=== PATIENT | female | born 2000 | race Caucasian/White ===

== ENCOUNTER 2021-05-02 20:36 | Emergency (ER) | payer OTHER ==
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
[2021-05-02 22:27] LABS: Urine Blood Trace-intact (Negative); Urine Glucose Negative (Negative); Urine Protein Negative (Negative); Urine Specific Gravity 1.015 (1.005-1.030)
[2021-05-02 22:31] LABS: Urine Specific Gravity/Preg 1.015 (1.005-1.030)
[2021-05-02 22:35] LABS: Absolute Lymphocytes (CBC) 2.6 K/uL (0.7-4.9); Basophils % 0.5 % (0-1.3); Hematocrit 42.8 % (36.0-45.0); Lymphocytes % 20.4 % (15.3-44.8); MPV 7.8 fL (7.6-11.3); RBC Red Blood Cell Count 5.33 M/uL (3.86-4.86)
[2021-05-02 22:47] LABS: ALT/SGPT 18 U/L (12-78); AST/SGOT 14 U/L (15-37); Albumin 4.2 g/dL (3.4-5.0); Alkaline Phosphatase 98 U/L (45-117); BUN Blood Urea Nitrogen 9 mg/dL (7-18); Bicarbonate 30 mmol/L (21-32); Bilirubin Direct 0.1 mg/dL (0-0.2); Bilirubin Total 0.4 mg/dL (0.2-1.0); Glucose Level 81 mg/dL (74-106); Lipase 108 U/L (73-393); Potassium 3.7 mmol/L (3.5-5.1); Protein, Total 7.8 g/dL (6.4-8.2); Sodium Level 139 mmol/L (136-145)
[2021-05-02] MEDS ORDERED: NA CHLORIDE 0.9% 500 ML ONE ×2 (22:47→23:46)
[2021-05-02 23:13] LABS: Blood Morphology Comment NOT SEEN (NOT SEEN); Platelet Estimate ADEQ
[2021-05-02] MEDS ORDERED: ONDANSETRON 4 MG/2 ML VIAL ONE (23:46)
[2021-05-02] MEDS ORDERED: MORPHINE 2 MG/ML SYR ONE (23:46)
--- NOTE | 2021-05-03 00:16 | EDPHYS ---
Physician Documentation [facility] Name: Thea Gonzalez Age: 21 yrs Sex: Female : 2000 Arrival Date: 05/02/2021 Time: 20:37 Bed 20 Private MD: ED Physician Sunil Echeverria HPI: 05/02 22:10 This 21 yrs old Female presents to ER via Ambulatory with complaints of pkl Abdominal Pain. 22:10 The patient presents with abdominal pain in the upper abdomen. Onset: The pkl symptoms/episode began/occurred 2 week(s) ago. The symptoms do not radiate. Associated signs and symptoms: Pertinent positives: diarrhea, nausea. 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 - Social history:: Smoking status: Patient denies any tobacco usage or history of. ROS: 22:10 Eyes: Negative for injury, pain, redness, and discharge, ENT: Negative for injury, pkl pain, and discharge, Neck: Negative for injury, pain, and swelling, Cardiovascular: Negative for chest pain, palpitations, and edema, Respiratory: Negative for shortness of breath, cough, wheezing, and pleuritic chest pain. 22:10 Abdomen/GI: Positive for abdominal pain, nausea, of the right upper quadrant and left upper quadrant. 22:10 Back: Negative for acute changes. 22:10 : Negative for urinary symptoms. 22:10 MS/extremity: Negative for acute changes. 22:10 Skin: Negative for rash. 22:10 Neuro: Negative for altered mental status, loss of consciousness. Exam: 22:10 Head/Face: Normocephalic, atraumatic. Eyes: Pupils equal round and reactive to light, pkl extra-ocular motions intact. Lids and lashes normal. Conjunctiva and sclera are non-icteric and not injected. Cornea within normal limits. Periorbital areas with no swelling, redness, or edema. ENT: Nares patent. No nasal discharge, no septal abnormalities noted. Tympanic membranes are normal and external auditory canals are clear. Oropharynx with no redness, swelling, or masses, exudates, or evidence of obstruction, uvula midline. Mucous membranes moist. Neck: Trachea midline, no thyromegaly or masses palpated, and no cervical lymphadenopathy. Supple, full range of motion without nuchal rigidity, or vertebral point tenderness. No Meningismus. Chest/axilla: Normal chest wall appearance and motion. Nontender with no deformity. No lesions are appreciated. Cardiovascular: Regular rate and rhythm with a normal S1 and S2. No gallops, murmurs, or rubs. Normal PMI, no JVD. No pulse deficits. Respiratory: Lungs have equal breath sounds bilaterally, clear to auscultation and percussion. No rales, rhonchi or wheezes noted. No increased work of breathing, no retractions or nasal flaring. 22:10 Abdomen/GI: Bowel sounds: normal, Palpation: soft, mild abdominal tenderness, in the right upper quadrant and left upper quadrant. 22:10 Back: Exam negative for acute changes. 22:10 : Exam negative for acute changes. 22:10 Musculoskeletal/extremity: Exam is negative for acute changes. 22:10 Skin: Exam negative for rash. 22:10 Neuro: Orientation: is normal, Mentation: is normal, Cranial nerves: grossly normal, Motor: is normal. Vital Signs: 21:17 BP 131 / 75; Pulse 97; Resp 14; Temp 97.9; Pulse Ox 99% on R/A; Weight 62.6 kg; Height em 5 ft. 2 in. (157.48 cm); Pain 5/10; 22:29 BP 117 / 76; Pulse 89; Resp 18 S; Pulse Ox 99% on R/A; ca1 05/03 00:04 BP 125 / 88; Pulse 91; Resp 18 S; Pulse Ox 100% on R/A; ca1 05/02 21:17 Body Mass Index 25.24 (62.60 kg, 157.48 cm) em MDM: 05/02 22:03 Patient medically screened. pkl 05/03 00:13 Data reviewed: vital signs, nurses notes, lab test result(s), radiologic studies, CT pkl scan. ED course: Discussed lab and CT Scan results with patient. Advised to follow up with PCP in 2 to 3 days. Patient understood instructions. 05/02 22:09 Order name: Basic Metabolic Panel; Complete Time: 22:57 pkl 05/02 22:09 Order name: CBC with Diff; Complete Time: 00:11 pkl 05/02 22:09 Order name: Hepatic Function; Complete Time: 22:57 pkl 05/02 22:09 Order name: Lipase; Complete Time: 22:57 pkl 05/02 22:26 Order name: Urine Dipstick-Ancillary; Complete Time: 22:43 EDMS 05/02 22:27 Order name: Urine --Ancillary (enter results); Complete Time: 22:43 tt3 05/02 22:09 Order name: IV Saline Lock; Complete Time: 22:28 pkl 05/02 22:09 Order name: CT Abd/Pelvis - IV Contrast Only pkl 05/02 22:48 Order name: Manual Differential; Complete Time: 00:11 EDMS 05/02 22:09 Order name: Labs collected and sent; Complete Time: 22:28 pkl 05/02 22:27 Order name: Urine Test (obtain specimen); Complete Time: 22:27 tt3 Administered Medications: 05/02 22:28 Drug: NS 0.9% 1000 ml Route: IV; Rate: 125 ml/hr; Site: left antecubital; ca1 05/03 00:03 Follow up: IV Status: Order to discontinue infusion ca1 00:04 Follow up: Response: No adverse reaction; IV Status: Order to discontinue infusion ca1 05/02 23:32 Drug: Zofran (Ondansetron) 2 mg Route: IVP; Site: right antecubital; ca1 23:34 Drug: morphine 2 mg {Note: rass 0.} Route: IVP; Site: right antecubital; ca1 23:36 Drug: NS 0.9% 1000 ml Route: IV; Rate: 1 bolus; Site: right antecubital; ca1 05/03 00:10 Drug: morphine 2 mg {Note: rass 0.} Route: IVP; Site: right antecubital; ca1 00:28 Drug: Cipro (ciprofloxacin) 500 mg Route: PO; jb4 00:39 Follow up: Response: Medication administered at discharge. jb4 Disposition Summary: 05/03/21 00:15 Discharge Ordered Location: Home pkl Problem: new pkl Symptoms: have improved pkl Condition: Stable pkl Diagnosis - Abdominal pain. Gastroenteritis pkl Followup: pkl - With: Private Physician - When: 2 - 3 days - Reason: Re-evaluation by your physician Discharge Instructions: - Discharge Summary Sheet pkl Forms: - Medication Reconciliation Form pkl - Thank You Letter pkl - Antibiotic Education pkl - Prescription Opioid Use pkl - Work release form ca1 Prescriptions: - Cipro 500 mg Oral Tablet - take 1 tablet by ORAL route every 12 hours for 5 days; 10 tablet; Refills: 0, pkl Product Selection Permitted Signatures: Dispatcher [employer] Sunil Draper MD MD pkl Dinesh Ramirez RN RN Cirilo Caballero RN RN jb4 AcCindy denton RN RN ca1 Edouard, Carlin tt3
--- NOTE | 2021-05-03 00:16 | ER ---
Nurse's Notes [facility] Name: Thea Gonzalez Age: 21 yrs Sex: Female : 2000 Arrival Date: 05/02/2021 Time: 20:37 Bed 20 Private MD: Diagnosis: Abdominal pain. Gastroenteritis Presentation: 05/02 21:17 Chief complaint: Patient states: abdomen pain that started few weeks ago, reports N/V em and lightheaded, denies fever. Coronavirus screen: Client denies travel out of the [place] in the last 14 days. Ebola Screen: Patient negative for fever greater than or equal to 101.5 degrees Fahrenheit, and additional compatible Ebola Virus Disease symptoms Patient denies exposure to infectious person. Patient denies travel to an Ebola-affected area in the 21 days before illness onset. No symptoms or risks identified at this time. Initial Sepsis Screen: Does the patient meet any 2 criteria? No. Patient's initial sepsis screen is negative. Does the patient have a suspected source of infection? No. Patient's initial sepsis screen is negative. Risk Assessment: Do you want to hurt yourself or someone else? Patient reports no desire to harm self or others. Onset of symptoms was May 02, 2021. 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 - Social history:: Smoking status: Patient denies any tobacco usage or history of. Screenin:11 Abuse screen: Denies threats or abuse. Denies injuries from another. Nutritional ca1 screening: No deficits noted. Tuberculosis screening: No symptoms or risk factors identified. Fall Risk IV access (20 points). Assessment: 22:11 General: Appears in no apparent distress. comfortable, Behavior is calm, cooperative, ca1 appropriate for age. Pain: Complains of pain in left upper quadrant and right upper quadrant Pain does not radiate. Pain currently is 6 out of 10 on a pain scale. 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 Neuro: Level of Consciousness is awake, alert, obeys commands, Oriented to person, place, time, situation. Cardiovascular: Heart tones S1 S2 present Capillary refill < 3 seconds Patient's skin is warm and dry. Respiratory: Airway is patent Respiratory effort is even, unlabored, Respiratory pattern is regular, symmetrical, Breath sounds are clear bilaterally. GI: Abdomen is flat, non-distended, Bowel sounds present X 4 quads. Abd is soft and non tender X 4 quads. GI: Reports nausea. : No signs and/or symptoms were reported regarding the genitourinary system. EENT: No signs and/or symptoms were reported regarding the EENT system. Derm: Skin is intact, is healthy with good turgor, Skin is pink, warm \T\ dry. Musculoskeletal: Circulation, motion, and sensation intact. Capillary refill < 3 seconds. 22:55 Reassessment: Patient appears in no apparent distress at this time. Patient and/or ca1 family updated on plan of care and expected duration. Pain level reassessed. Patient is alert, oriented x 3, equal unlabored respirations, skin warm/dry/pink. 05/03 00:04 Reassessment: Patient appears in no apparent distress at this time. Patient is alert, ca1 oriented x 3, equal unlabored respirations, skin warm/dry/pink. 00:30 Reassessment: Patient appears in no apparent distress at this time. Patient and/or jb4 family updated on plan of care and expected duration. Pain level reassessed. Patient is alert, oriented x 3, equal unlabored respirations, skin warm/dry/pink. Vital Signs: 05/02 21:17 BP 131 / 75; Pulse 97; Resp 14; Temp 97.9; Pulse Ox 99% on R/A; Weight 62.6 kg; Height em 5 ft. 2 in. (157.48 cm); Pain 5/10; 22:29 BP 117 / 76; Pulse 89; Resp 18 S; Pulse Ox 99% on R/A; ca1 05/03 00:04 BP 125 / 88; Pulse 91; Resp 18 S; Pulse Ox 100% on R/A; ca1 05/02 21:17 Body Mass Index 25.24 (62.60 kg, 157.48 cm) em ED Course: 05/02 20:37 Patient arrived in ED. ds1 21:20 Triage completed. em 21:20 Arm band placed on. em 22:03 Sunil Echeverria MD is Attending Physician. pkl 22:08 Cindy Bernard, GRAYSON is Primary Nurse. ca1 22:11 Patient has correct armband on for positive identification. Bed in low position. Call ca1 light in reach. Side rails up X 1. Pulse ox on. NIBP on. Warm blanket given. 22:28 Initial lab(s) drawn, by me, sent to lab. Inserted saline lock: 20 gauge in left ca1 antecubital area, using aseptic technique. Blood collected. 23:26 CT Abd/Pelvis - IV Contrast Only In Process Unspecified. EDMS 05/03 00:30 No provider procedures requiring assistance completed. IV discontinued, intact, jb4 bleeding controlled, No redness/swelling at site. Pressure dressing applied. Administered Medications: 05/02 22:28 Drug: NS 0.9% 1000 ml Route: IV; Rate: 125 ml/hr; Site: left antecubital; ca1 05/03 00:03 Follow up: IV Status: Order to discontinue infusion ca1 00:04 Follow up: Response: No adverse reaction; IV Status: Order to discontinue infusion ca1 05/02 23:32 Drug: Zofran (Ondansetron) 2 mg Route: IVP; Site: right antecubital; ca1 23:34 Drug: morphine 2 mg {Note: rass 0.} Route: IVP; Site: right antecubital; ca1 23:36 Drug: NS 0.9% 1000 ml Route: IV; Rate: 1 bolus; Site: right antecubital; ca1 05/03 00:10 Drug: morphine 2 mg {Note: rass 0.} Route: IVP; Site: right antecubital; ca1 00:28 Drug: Cipro (ciprofloxacin) 500 mg Route: PO; jb4 00:39 Follow up: Response: Medication administered at discharge. jb4 Outcome: 00:15 Discharge ordered by . pkl 00:30 Discharged to home ambulatory, with family. jb4 00:30 Condition: stable 00:30 Discharge instructions given to patient, Instructed on discharge instructions, follow up and referral plans. medication usage, Demonstrated understanding of instructions, follow-up care, medications, Prescriptions given X 1. 00:40 Patient left the ED. jb4 Signatures: Dispatcher [employer] EDNV Sunil Echeverria MD MD pkl Munoz, Edgar, RN Cheyenne Henriquez ds1 Cirilo Pretty, RN RN jb4 Cindy Bernard RN RN ca1 Corrections: (The following items were deleted from the chart) 05/02 22:13 22:11 Fall Risk No IV (0 pts). ca1 ca1
[2021-05-03] MEDS ORDERED: MORPHINE 2 MG/ML SYR ONE (00:31)
[2021-05-03] MEDS ORDERED: CIPROFLOXACIN HCL 500 MG TAB ONE (00:46)
[2021-05-03 01:18] VITALS: TEMP 97.9
[2021-05-03 01:22] VITALS: BP 125/88; O2SAT 100
--- NOTE | 2021-05-03 10:05 | RAD REPORT ---
EXAM DESCRIPTION: CT - Abdomen Pelvis W Contrast - 05/03/2021 4:53 am CLINICAL HISTORY: The patient is 21 years old and is Female; ABD PAIN TECHNIQUE: Axial computed tomography images of the abdomen and pelvis with intravenous contrast. S agittal and coronal reformatted images were created and reviewed. This CT exam was performed using one or more of the following dose reduction techniques: automated exposure control, adjustment of t he mA and/or kV according to patient size, and/or use of iterative reconstruction technique. COMPARISON: No relevant prior studies available. FINDINGS: Lung bases: Unremarkable. No mass. No consolidation. ABDOMEN: Liver: Unremarkable. No mass. Gallbladder and bile ducts: Unremarkable. No calcified stones. No ductal dilation. Pancreas: Unremarkable. No mass. No ductal dilation. Spleen: Unremarkable. No splenomegaly. Adrenals: Unremarkable. No mass. Kidneys and ureters: Unremarkable. No solid mass. No hydronephrosis. Stomach and bowel: Prominent small bowel with bowel wall thickening in the left upper quadrant. No obstruction. PELVIS: Appendix: No findings to suggest acute appendicitis. Bladder: Suggestion of diffuse bladder wall thickening, but the bladder is relatively nondistend ed limiting evaluation. Reproductive: Unremarkable as visualized. ABDOMEN and PELVIS: Intraperitoneal space: Unremarkable. No free air. No significant fluid collection. Bones/joints: No acute fracture. No dislocation. Soft tissues: Unremarkable. Vasculature: Unremarkable. No abdominal aortic aneurysm. Lymph nodes: Unremarkable. No enlarged lymph nodes. IMPRESSION: 1. Prominent small bowel with bowel wall thickening in the left upper quadrant. Lizz elate with any concern for enteritis. 2. Suggestion of diffuse bladder wall thickening, but the bladder is relatively nondistended limiti ng evaluation. Correlate with any concern for cystitis. Electronically signed by: Edgardo Saravia MD 05/02/2021 11:52 PM CDT Due to temporary technical issues with the PACS/Fluency reporting system, reports are being signed by the in house radiologist without review as a courtesy to ensure prompt reporting. The interpreting r adiologist is fully responsible for the content of the report.
== END 2021-05-03 00:40 | disposition home or self-care (01) ==
LOC: ER 20:36
DX: K52.9 Noninfective gastroenteritis and colitis, unspecified (principal)
CPT/HCPCS: 96361; 85025; 80048; 36415; 81025; 80076; 81003; 83690; 74177; 96375; 96374; 99284; Q9967; J2270 ×2; J7040 ×2; J2405